=== PATIENT | female | born 1995 | race Hispanic/Latino ===

== ENCOUNTER 2021-02-27 23:08 | Emergency (ER) | payer SELFPAY ==
[~2021-02-27] VITALS: Ht 165.1 cm; Wt 75.0 kg
--- OUTSIDE RECORDS SUMMARY | 2021-02-28 00:40 | XMS ---
PreManage Notification: KRISTY WOOD [employer] Events No recent Security Events currently on file CRITERIA MET - 6 ED Visits in 6 Months CARE PROVIDERS There are no care providers on record at this time. Lali has no Care Guidelines for this patient. EBrisa VISIT COUNT (12 MO.) [address] [id number] YULIYA Delgado TOTAL 7 NOTE: Visits indicate total known visits. ED/C VISIT TRACKING (12 MO.) 02/27/2021 23:[address] [place] TYPE: Emergency COMPLAINT: - [facility] DIAGNOSES: - Panic disorder [episodic paroxysmal anxiety] - Anxiety disorder, unspecified - CP since 6am yesterday - Chest Pain [facility] DIAGNOSES: - Headache, unspecified - Exposure to covid,SHEPHERD,cough - COVID-19 - Flu Like Symptoms 10[facility]04/2020 [facility] DIAGNOSES: - Wound Check - Other injury of unspecified body region, initial encounter - Local infection of the skin and subcutaneous tissue, unspecified - Sweling of hand at suture site 10/03/2020 16[facility]09 [facility] DIAGNOSES: - Hand Laceration - R Hand LAC - Laceration without foreign body of right hand, initial encounter 09/13/2020 06:02 [facility]Y [facility] TYPE: Emergency DIAGNOSES: - Wheezing - Alcohol Intoxication - Alcohol use, unspecified with intoxication, uncomplicated - Shortness of breath - ETOH, ANXIETY - Unspecified asthma, uncomplicated [facility]03[facility]2020 [facility] [facility] COMPLAINT: - Arm Pain INPATIENT VISIT TRACKING (12 MO.) No inpatient visits to display in this time frame [email or web address]
== END 2021-02-28 01:20 | disposition home or self-care (01) ==
LOC: ED 23:08 → EDBD 23:09 → ED 02-28 01:20
DX: S49.92XA Unspecified injury of left shoulder and upper arm, initial encounter (principal); M54.2 Cervicalgia; X58.XXXA Exposure to other specified factors, initial encounter
CPT/HCPCS: 99283